=== PATIENT | male | born 1945 | race Caucasian/White ===

== ENCOUNTER 2016-11-27 08:00 | Outpatient (CLI) | payer MEDICARE, OTHER | END 2016-11-27 08:01 | disposition home or self-care (01) | DX: I10 Essential (primary) hypertension (principal); Z12.5 Encounter for screening for malignant neoplasm of prostate; E78.9 Disorder of lipoprotein metabolism, unspecified; I25.10 Atherosclerotic heart disease of native coronary artery without angina pectoris | CPT/HCPCS: 36415; 80053; 80061; 85025; G0103 ==

== ENCOUNTER 2017-01-14 07:58 | Outpatient (CLI) | payer MEDICARE, OTHER | END 2017-01-14 07:59 | DX: I25.2 Old myocardial infarction (principal); I10 Essential (primary) hypertension; Z95.5 Presence of coronary angioplasty implant and graft; E78.5 Hyperlipidemia, unspecified; Z87.891 Personal history of nicotine dependence; E66.01 Morbid (severe) obesity due to excess calories; Z68.35 Body mass index [BMI] 35.0-35.9, adult ==

== ENCOUNTER 2017-02-19 09:00 | Outpatient (CLI) | payer MEDICARE, OTHER ==
[2017-02-19 13:32] LABS: CALCIUM 8.9 mg/dL (8.5-10.3); CREATININE 1.1 mg/dL (0.6-1.2); POTASSIUM 3.5 mmol/L (3.5-5.0)
== END 2017-02-19 09:01 | disposition home or self-care (01) ==
LOC: LAB.WCP 09:00
PROVIDERS: ATTEND Internal Medicine Interventional Cardiology
DX: I25.2 Old myocardial infarction (principal)
CPT/HCPCS: 36415; 80048

== ENCOUNTER 2017-06-23 08:00 | Outpatient (CLI) | payer MEDICARE, OTHER ==
[2017-06-23 19:10] LABS: BASOPHILS # (AUTO) 0.1 10^3/uL (0.0-0.1); EOSINOPHILS # (AUTO) 0.4 10^3/uL (0.0-0.7); EOSINOPHILS % (AUTO) 3.6 %; HCT - HEMATOCRIT 46.6 % (42.0-52.0); HGB - HEMOGLOBIN 15.4 g/dL (14.0-18.0); LYMPHOCYTES # (AUTO) 1.6 10^3/uL (1.5-3.5); LYMPHOCYTES % (AUTO) 15.4 %; MEAN CORPUSCULAR HEMOGLOBIN 30.7 pg (27.0-31.0); MEAN CORPUSCULAR HGB CONC 33.1 g/dL (32.0-36.0); MEAN CORPUSCULAR VOLUME 92.8 fL (80.0-94.0); MEAN PLATELET VOLUME 8.1 fL (7.4-11.4); MONOCYTES # (AUTO) 0.9 10^3/uL (0.0-1.0); MONOCYTES % (AUTO) 8.3 %; NEUTROPHILS # (AUTO) 7.4 10^3/uL (1.5-6.6); NEUTROPHILS % (AUTO) 71.7 %; RED BLOOD COUNT 5.02 10^6/uL (4.70-6.10); RED CELL DISTRIBUTION WIDTH 14.1 % (12.0-15.0); UNCORRECTED WHITE BLOOD COUNT 10.3 x10^3/uL; WHITE BLOOD COUNT 10.3 x10^3/uL (4.8-10.8)
[2017-06-23 19:32] LABS: ALBUMIN/GLOBULIN RATIO 1.4 (1.0-2.2); BILIRUBIN,TOTAL 0.9 mg/dL (0.2-1.0); CALCIUM 8.8 mg/dL (8.5-10.3); CREATININE 1.3 mg/dL (0.6-1.2); POTASSIUM 3.7 mmol/L (3.5-5.0); TOTAL PROTEIN 7.3 g/dL (6.7-8.2)
== END 2017-06-23 08:01 | disposition home or self-care (01) ==
LOC: LAB.WCP 08:00
PROVIDERS: ATTEND Family Medicine
DX: R10.32 Left lower quadrant pain (principal)
CPT/HCPCS: 36415; 80053; 85025

== ENCOUNTER 2017-06-24 14:07 | Outpatient (CLI) | payer MEDICARE, OTHER ==
[2017-06-24] MEDS ORDERED: IOPAMIDOL-300 50 ML VIAL ONE (14:15)
[2017-06-24] MEDS ORDERED: IOPAMIDOL-300 50 ML VIAL PO ONE (14:19)
[2017-06-24] MEDS ORDERED: IOPAMIDOL-300 100 ML VIAL IVP ONE (15:29)
--- NOTE | 2017-06-25 09:12 | CT Report ---
CT ABDOMEN AND PELVIS WITH CONTRAST: 06/24/2017 CLINICAL INDICATION: Pain. TECHNIQUE: Axial CT images of the abdomen and pelvis were obtained with 100 mL Isovue-300 intravenou sly as well as oral contrast. No previous CT is available for comparison. In accordance with CT protocol optimization, one or more of the following dose reduction techniques w ere utilized for this exam: automated exposure control, adjustment of mA and/or KV based on patient size, or use of iterative reconstructive technique. FINDINGS: Limited evaluation of the lung bases is unremarkable. Abdomen: The liver, spleen, pancreas, and adrenal glands are unremarkable. The kidneys demonstrate cortical cysts. Cholelithiasis is present. The gallbladder is not distended. No bowel dilatation, free gas, or free fluid is present. No abdominal adenopathy is present. Pelvis: The appendix is seen in the right lower quadrant, and is normal in caliber. A few sigmoid d iverticula are present, without CT evidence of diverticulitis. No inguinal or femoral hernia is iden tified. No free fluid or pelvic adenopathy is present. Osseous structures demonstrate degenerative changes. IMPRESSION: DIVERTICULOSIS, WITHOUT CT EVIDENCE OF DIVERTICULITIS. NO EVIDENT ETIOLOGY FOR PATIENT' S LEFT LOWER QUADRANT AND LEFT INGUINAL PAIN. JOB #: [id number] EXT JOB #:[id number]
== END 2017-06-24 14:08 | disposition home or self-care (01) ==
LOC: DI 14:07
PROVIDERS: ATTEND Family Medicine
DX: R10.32 Left lower quadrant pain (principal); K57.30 Diverticulosis of large intestine without perforation or abscess without bleeding
CPT/HCPCS: 74177; Q9967

== ENCOUNTER 2018-02-25 14:34 | Outpatient (CLI) | payer MEDICARE, OTHER ==
[2018-02-25 19:00] LABS: ALBUMIN/GLOBULIN RATIO 1.2 (1.0-2.2); BILIRUBIN,TOTAL 1.2 mg/dL (0.2-1.0); CALCIUM 8.8 mg/dL (8.5-10.3); CREATININE 1.3 mg/dL (0.6-1.2); TOTAL PROTEIN 7.4 g/dL (6.7-8.2)
[2018-02-25 19:24] LABS: FOLATE 12.71 ng/mL (5.90 - >24.8)
== END 2018-02-25 14:35 | disposition home or self-care (01) ==
LOC: LAB.WCP 14:34
PROVIDERS: ATTEND Family Medicine
DX: R19.7 Diarrhea, unspecified (principal)
CPT/HCPCS: 36415; 80053; 82607; 82746; 83516

== ENCOUNTER 2018-02-28 08:00 | Outpatient (CLI) | payer MEDICARE, OTHER ==
[2018-02-28 19:54] LABS: H. PYLORIS ANTIGEN STL NEGATIVE (Negative)
== END 2018-02-28 08:01 | disposition home or self-care (01) ==
LOC: LAB.WCP 08:00
PROVIDERS: ATTEND Family Medicine
DX: R19.7 Diarrhea, unspecified (principal)
CPT/HCPCS: 36415; 81599; 83630; 87329; 87338; 87493

== ENCOUNTER 2018-09-29 13:30 | Outpatient (CLI) | payer MEDICARE, OTHER | END 2018-09-29 23:59 | disposition home or self-care (01) | LOC: LAB.WCP 13:30 | PROVIDERS: ATTEND Family Medicine | DX: R19.7 Diarrhea, unspecified (principal) | CPT/HCPCS: 87493 ==

== ENCOUNTER 2019-03-09 07:22 | Outpatient (CLI) | payer MEDICARE, OTHER ==
[2019-03-09 12:37] LABS: BASOPHILS # (AUTO) 0.1 10^3/uL (0.0-0.1); BASOPHILS % (AUTO) 0.8 %; EOSINOPHILS # (AUTO) 0.3 10^3/uL (0.0-0.7); EOSINOPHILS % (AUTO) 3.3 %; HGB - HEMOGLOBIN 15.2 g/dL (14.0-18.0); LYMPHOCYTES # (AUTO) 1.8 10^3/uL (1.5-3.5); LYMPHOCYTES % (AUTO) 18.1 %; MEAN CORPUSCULAR HEMOGLOBIN 30.8 pg (27.0-31.0); MEAN CORPUSCULAR HGB CONC 32.2 g/dL (32.0-36.0); MEAN CORPUSCULAR VOLUME 95.5 fL (80.0-94.0); MEAN PLATELET VOLUME 9.6 fL (7.4-11.4); MONOCYTES # (AUTO) 0.8 10^3/uL (0.0-1.0); MONOCYTES % (AUTO) 8.5 %; NEUTROPHILS # (AUTO) 6.8 10^3/uL (1.5-6.6); NEUTROPHILS % (AUTO) 69.1 %; PLT - PLATELET COUNT 252 10^3/uL (130-450); RED BLOOD COUNT 4.94 10^6/uL (4.70-6.10); RED CELL DISTRIBUTION WIDTH 13.8 % (12.0-15.0); WHITE BLOOD COUNT 9.8 x10^3/uL (4.8-10.8)
[2019-03-09 13:07] LABS: ALBUMIN 4.1 g/dL (3.2-5.5); ALBUMIN/GLOBULIN RATIO 1.3 (1.0-2.2); ALKALINE PHOSPHATASE 75 IU/L (42-121); ALT ALANINE AMINOTRANSFERASE 32 IU/L (10-60); AST ASPARTATE AMINOTRANSFERASE 40 IU/L (10-42); BILIRUBIN,TOTAL 1.2 mg/dL (0.2-1.0); BUN - BLOOD UREA NITROGEN 17 mg/dL (6-20); CARBON DIOXIDE - CO2 23 mmol/L (21-32); CHLORIDE 108 mmol/L (101-111); CHOL/HDL RATIO 3.9 (<5.0); CHOLESTEROL 93 mg/dL; CREATININE 1.3 mg/dL (0.6-1.2); GFR - MDRD 54 (>89); GLUCOSE 99 mg/dL (70-100); HDL CHOLESTEROL 24 mg/dL; LDL CHOLESTEROL,CALCULATED 48 mg/dL; SODIUM 139 mmol/L (135-145); TOTAL PROTEIN 7.2 g/dL (6.7-8.2); VLDL CHOLESTEROL 21 mg/dL
== END 2019-03-09 23:59 | disposition home or self-care (01) ==
LOC: LAB.WCP 07:22
PROVIDERS: ATTEND Family Medicine
DX: A04.72 Enterocolitis due to Clostridium difficile, not specified as recurrent (principal); I25.10 Atherosclerotic heart disease of native coronary artery without angina pectoris; I10 Essential (primary) hypertension; Z12.5 Encounter for screening for malignant neoplasm of prostate
CPT/HCPCS: 36415; 80061; G0103; 80053; 83721; 84153; 84443; 85025

== ENCOUNTER 2019-03-10 07:00 | Outpatient (CLI) | payer MEDICARE, OTHER | END 2019-03-10 07:01 | disposition home or self-care (01) | LOC: LAB.R 07:00 | PROVIDERS: ATTEND Family Medicine | DX: A04.72 Enterocolitis due to Clostridium difficile, not specified as recurrent (principal) | CPT/HCPCS: 87493 ==

== ENCOUNTER 2020-02-19 08:00 | Outpatient (CLI) | payer MEDICARE, OTHER ==
[2020-02-19 12:09] LABS: BASOPHILS # (AUTO) 0.1 10^3/uL (0.0-0.1); BASOPHILS % (AUTO) 1.2 %; EOSINOPHILS # (AUTO) 0.2 10^3/uL (0.0-0.7); EOSINOPHILS % (AUTO) 2.1 %; HGB - HEMOGLOBIN 15.5 g/dL (14.0-18.0); LYMPHOCYTES # (AUTO) 1.7 10^3/uL (1.5-3.5); LYMPHOCYTES % (AUTO) 19.5 %; MEAN CORPUSCULAR HEMOGLOBIN 31.8 pg (27.0-31.0); MEAN CORPUSCULAR HGB CONC 33.3 g/dL (32.0-36.0); MEAN CORPUSCULAR VOLUME 95.7 fL (80.0-94.0); MEAN PLATELET VOLUME 10.1 fL (7.4-11.4); MONOCYTES # (AUTO) 0.8 10^3/uL (0.0-1.0); MONOCYTES % (AUTO) 9.3 %; NEUTROPHILS # (AUTO) 5.8 10^3/uL (1.5-6.6); NEUTROPHILS % (AUTO) 67.6 %; PLT - PLATELET COUNT 200 10^3/uL (130-450); RED BLOOD COUNT 4.87 10^6/uL (4.70-6.10); RED CELL DISTRIBUTION WIDTH 13.4 % (12.0-15.0); WHITE BLOOD COUNT 8.6 x10^3/uL (4.8-10.8)
[2020-02-19 13:03] LABS: ALBUMIN/GLOBULIN RATIO 1.4 (1.0-2.2); ALKALINE PHOSPHATASE 79 IU/L (42-121); ALT ALANINE AMINOTRANSFERASE 40 IU/L (10-60); AST ASPARTATE AMINOTRANSFERASE 24 IU/L (10-42); BILIRUBIN,TOTAL 1.1 mg/dL (0.2-1.0); BUN - BLOOD UREA NITROGEN 18 mg/dL (6-20); CALCIUM 8.8 mg/dL (8.5-10.3); CARBON DIOXIDE - CO2 29 mmol/L (21-32); CHLORIDE 103 mmol/L (101-111); CHOL/HDL RATIO 3.5 (<5.0); CHOLESTEROL 101 mg/dL; CREATININE 1.3 mg/dL (0.6-1.2); GLUCOSE 101 mg/dL (70-100); HDL CHOLESTEROL 29 mg/dL; LDL CHOLESTEROL,CALCULATED 56 mg/dL; LDL/HDL RATIO 1.9 (<3.6); SODIUM 139 mmol/L (135-145); TOTAL PROTEIN 6.9 g/dL (6.7-8.2); VLDL CHOLESTEROL 16 mg/dL
== END 2020-02-19 23:59 | disposition home or self-care (01) ==
LOC: LAB.WCP 08:00
PROVIDERS: ATTEND Family Medicine
DX: I25.10 Atherosclerotic heart disease of native coronary artery without angina pectoris (principal); R19.7 Diarrhea, unspecified; I10 Essential (primary) hypertension; Z12.5 Encounter for screening for malignant neoplasm of prostate; E87.5 Hyperkalemia
CPT/HCPCS: 36415; 80053; 80061; 84443; 85025; G0103; 83721; 84153

== ENCOUNTER 2021-06-27 08:32 | Outpatient (CLI) | payer MEDICARE, OTHER ==
[2021-06-27 12:20] LABS: BASOPHILS # (AUTO) 0.1 10^3/uL (0.0-0.1); BASOPHILS % (AUTO) 0.9 %; EOSINOPHILS # (AUTO) 0.1 10^3/uL (0.0-0.7); EOSINOPHILS % (AUTO) 1.5 %; HCT - HEMATOCRIT 46.6 % (42.0-52.0); HGB - HEMOGLOBIN 15.6 g/dL (14.0-18.0); LYMPHOCYTES # (AUTO) 1.9 10^3/uL (1.5-3.5); LYMPHOCYTES % (AUTO) 21.7 %; MEAN CORPUSCULAR HEMOGLOBIN 32.1 pg (27.0-31.0); MEAN CORPUSCULAR HGB CONC 33.5 g/dL (32.0-36.0); MEAN CORPUSCULAR VOLUME 95.9 fL (80.0-94.0); MONOCYTES # (AUTO) 0.8 10^3/uL (0.0-1.0); NEUTROPHILS # (AUTO) 5.8 10^3/uL (1.5-6.6); NEUTROPHILS % (AUTO) 66.6 %; PLT - PLATELET COUNT 213 10^3/uL (130-450); RED BLOOD COUNT 4.86 10^6/uL (4.70-6.10); RED CELL DISTRIBUTION WIDTH 13.2 % (12.0-15.0); WHITE BLOOD COUNT 8.8 x10^3/uL (4.8-10.8)
[2021-06-27 13:37] LABS: ALBUMIN 4.2 g/dL (3.2-5.5); ALBUMIN/GLOBULIN RATIO 1.5 (1.0-2.2); ALKALINE PHOSPHATASE 74 IU/L (42-121); ALT ALANINE AMINOTRANSFERASE 33 IU/L (10-60); AST ASPARTATE AMINOTRANSFERASE 21 IU/L (10-42); BUN - BLOOD UREA NITROGEN 30 mg/dL (6-20); CALCIUM 9.3 mg/dL (8.5-10.3); CARBON DIOXIDE - CO2 29 mmol/L (21-32); CHLORIDE 103 mmol/L (101-111); CHOLESTEROL 116 mg/dL; CREATININE 1.5 mg/dL (0.6-1.2); GFR - MDRD 46 (>89); GLUCOSE 107 mg/dL (70-100); HDL CHOLESTEROL 29 mg/dL; LDL CHOLESTEROL,CALCULATED 64 mg/dL; LDL/HDL RATIO 2.2 (<3.6); POTASSIUM 3.7 mmol/L (3.5-5.0); SODIUM 144 mmol/L (135-145); TRIGLYCERIDES 113 mg/dL; VLDL CHOLESTEROL 23 mg/dL
== END 2021-06-27 23:59 | disposition home or self-care (01) ==
LOC: LAB.WCP 08:32
PROVIDERS: ATTEND Internal Medicine
DX: I10 Essential (primary) hypertension (principal); E78.5 Hyperlipidemia, unspecified; Z12.5 Encounter for screening for malignant neoplasm of prostate
CPT/HCPCS: 36415; 80053; 80061; 85025; G0103; 83721; 84153

== ENCOUNTER 2021-06-30 11:11 | Outpatient (CLI) | payer MEDICARE, OTHER ==
[2021-06-30 18:39] LABS: CREATININE 1.3 mg/dL (0.6-1.2); POTASSIUM 3.7 mmol/L (3.5-5.0); URIC ACID 11.4 mg/dL (2.6-7.2)
== END 2021-06-30 23:59 | disposition home or self-care (01) ==
LOC: LAB.WCP 11:11
PROVIDERS: ATTEND Internal Medicine
DX: M10.272 Drug-induced gout, left ankle and foot (principal)
CPT/HCPCS: 36415; 80048; 84550

== ENCOUNTER 2021-09-18 07:00 | Outpatient (CLI) | payer MEDICARE, OTHER ==
[2021-09-18 12:22] LABS: CALCIUM 8.8 mg/dL (8.5-10.3); CREATININE 1.4 mg/dL (0.6-1.2); POTASSIUM 3.6 mmol/L (3.5-5.0)
== END 2021-09-18 23:59 | disposition home or self-care (01) ==
LOC: LAB.WCP 07:00
PROVIDERS: ATTEND Internal Medicine
DX: M10.272 Drug-induced gout, left ankle and foot (principal)
CPT/HCPCS: 36415; 80048; 84550

== ENCOUNTER 2021-09-24 07:39 | Outpatient (CLI) | payer MEDICARE, OTHER ==
--- NOTE | 2021-09-24 08:48 | Ultrasound Report ---
PROCEDURE: Aorta Screening INDICATIONS: HX OF SMOKING TECHNIQUE: Real time scanning was performed of the aorta and iliac arteries, with image documentatio n. COMPARISON: Reference is made to the CT abdomen dated June 24, 2017. FINDINGS: Aorta: Proximal aortic diameter measures 2.9 x 2.8 cm. Mid-aorta measures 2.4 x 2.3 cm. Distal aor tic diameter is 2.4 x 2.8 cm. Calcified atheromatous change of the aorta. Iliac arteries: Right common iliac artery measures 1.1 x 1 cm. Left common iliac artery measures 1 x 0.8 cm. IMPRESSION: 1. No sonographic evidence of abdominal aortic aneurysm. Reviewed by: Manan Rivera MD on 09/24/2021 8:47 AM PST Approved by: Manan Rivera MD on 09/24/2021 8:47 AM PST Station ID: [id number]
== END 2021-09-24 07:40 | disposition home or self-care (01) ==
LOC: DI 07:39
PROVIDERS: ATTEND Internal Medicine
DX: Z13.6 Encounter for screening for cardiovascular disorders (principal); Z87.891 Personal history of nicotine dependence

== ENCOUNTER 2022-09-30 09:10 | Outpatient (CLI) | payer MEDICARE, OTHER ==
[2022-09-30 13:00] LABS: ALBUMIN 3.8 g/dL (3.2-5.5); ALBUMIN/GLOBULIN RATIO 1.1 (1.0-2.2); ALKALINE PHOSPHATASE 77 IU/L (42-121); ALT ALANINE AMINOTRANSFERASE 27 IU/L (10-60); AST ASPARTATE AMINOTRANSFERASE 18 IU/L (10-42); BILIRUBIN,TOTAL 1.2 mg/dL (0.2-1.0); BUN - BLOOD UREA NITROGEN 24 mg/dL (6-20); CALCIUM 9.1 mg/dL (8.5-10.3); CARBON DIOXIDE - CO2 29 mmol/L (21-32); CHLORIDE 104 mmol/L (101-111); CHOL/HDL RATIO 3.5 (<5.0); CHOLESTEROL 105 mg/dL; CREATININE 1.5 mg/dL (0.6-1.2); GFR - MDRD 46 (>89); GLUCOSE 100 mg/dL (70-100); HDL CHOLESTEROL 30 mg/dL; LDL CHOLESTEROL,CALCULATED 55 mg/dL; LDL/HDL RATIO 1.8 (<3.6); POTASSIUM 3.9 mmol/L (3.5-5.0); SODIUM 141 mmol/L (135-145); TOTAL PROTEIN 7.2 g/dL (6.7-8.2); TRIGLYCERIDES 102 mg/dL; URIC ACID 8.7 mg/dL (2.6-7.2); VLDL CHOLESTEROL 20 mg/dL
[2022-09-30 13:12] LABS: THYROID STIMULATING HORMONE 1.62 uIU/mL (0.34-5.60)
[2022-09-30 13:14] LABS: BASOPHILS # (AUTO) 0.1 10^3/uL (0.0-0.1); BASOPHILS % (AUTO) 0.8 %; EOSINOPHILS # (AUTO) 0.2 10^3/uL (0.0-0.7); EOSINOPHILS % (AUTO) 1.6 %; HCT - HEMATOCRIT 45.5 % (42.0-52.0); HGB - HEMOGLOBIN 14.6 g/dL (14.0-18.0); LYMPHOCYTES # (AUTO) 1.7 10^3/uL (1.5-3.5); MEAN CORPUSCULAR HEMOGLOBIN 30.4 pg (27.0-31.0); MEAN CORPUSCULAR HGB CONC 32.1 g/dL (32.0-36.0); MEAN CORPUSCULAR VOLUME 94.8 fL (80.0-94.0); MEAN PLATELET VOLUME 10.1 fL (7.4-11.4); MONOCYTES % (AUTO) 9.2 %; NEUTROPHILS # (AUTO) 7.6 10^3/uL (1.5-6.6); NEUTROPHILS % (AUTO) 72.1 %; PLT - PLATELET COUNT 212 10^3/uL (130-450); RED CELL DISTRIBUTION WIDTH 13.7 % (12.0-15.0); WHITE BLOOD COUNT 10.6 x10^3/uL (4.8-10.8)
== END 2022-09-30 09:11 | disposition home or self-care (01) ==
LOC: LAB.N 09:10
PROVIDERS: ATTEND Internal Medicine
DX: E78.5 Hyperlipidemia, unspecified (principal); M10.272 Drug-induced gout, left ankle and foot; I10 Essential (primary) hypertension
CPT/HCPCS: 36415; 80053; 80061; 83721; 84443; 84550; 85025

== ENCOUNTER 2022-12-23 08:53 | Outpatient (CLI) | payer MEDICARE, OTHER ==
[2022-12-23 12:00] LABS: CALCIUM 8.6 mg/dL (8.5-10.3); CREATININE 1.3 mg/dL (0.6-1.2); POTASSIUM 3.8 mmol/L (3.5-5.0); URIC ACID 5.5 mg/dL (2.6-7.2)
== END 2022-12-23 08:54 | disposition home or self-care (01) ==
LOC: LAB.N 08:53
PROVIDERS: ATTEND Internal Medicine
DX: I10 Essential (primary) hypertension (principal); M10.272 Drug-induced gout, left ankle and foot
CPT/HCPCS: 36415; 80048; 84550

== ENCOUNTER 2023-03-12 13:51 | Outpatient (CLI) | payer MEDICARE, OTHER ==
--- NOTE | 2023-03-12 14:46 | Sleep Patient Instructions ---
Sleep Center Visit Summary - Patient Visit Information Reason for Visit: Initial consult for evaluation of sleep disordered breathing and other sleep issues. - Patient Instructions Instructions Attached: Sleep Study, Sleep Clinic Visit Additional Instructions: You will be completing a sleep study, either an in-lab polysomnography (PSG) or home sleep study (HST). You will follow-up in the sleep care office after the sleep study is completed to hear the results and talk about therapy, if needed. You will be called by our office staff to schedule this appointment, but you may contact us with any questions. - Clinic Information Contact: [facility] [address] [place] [address] [email or web address] T: [phone]
--- NOTE | 2023-03-12 14:50 | SLEEP CARE CONSULTATION ---
Information from patient questionnaire entered by Ton Young. I have reviewed and concur with the information entered by Ton Young. This document represents the service I personally performed and the decisions made by me, Marni Stephen ARNP. History of Present Illness Service Date and Time: 03/12/2023 1351 Reason for Visit: New patient Chief Complaint: reports: Snoring, Observed pauses in breathing, Other (Doctor sent him here) Date of Onset: UNKNOWN Usual bedtime: 9PM Time it takes to fall asleep: 30MIN Snores at night: Yes Observed to quit breathing while asleep: Yes Sleeps alone due to snoring: No Number of times waking at night: 3-4 Reasons for waking at night: reports: Bathroom. denies: Choking, Snoring, Gasping for air Toss, Turn, or Twitch while sleeping: Yes Recalls having dreams: Yes Usually gets out of bed at: 630AM Feels refreshed in the morning: Yes Morning headache: No Sleepy or fatigued during the day: Yes Ever fallen asleep while driving: No Takes day naps: Yes (2-3 times a week; 15-30 mins) Dreams during day naps: No Prior sleep studies: No Additional HPI information: I had the pleasure of seeing MILANA GÓMEZ today regarding the possibility of him having a sleep disorder. His current complaints are snoring and observed pauses in breathing. He is here because his doctor recommended it. He states he is not really got any complaints but his has told him he snores loudly and has noted when he stops breathing when sleeping. He states he wakes up feeling refreshed and will take 2 or 3 naps a week for 15 to 30 minutes. He does not feel excessively sleepy. He denies waking up feeling like he is choking or gasping for air. He does have a history of high blood pressure that he feels is well controlled. - Parasomnia Symptoms Ever been unable to move upon waking from sleep: No Walks in sleep: No Talks in sleep: No Ever acted out dreams in sleep: No Ever felt weak in the knees when startled or emotional: No Bothered by creepy, crawly, restless sensations in legs: No Problems with memory or concentration: No Subjective Initial [place] Sleepiness Scale score: 10 (03/12/23) Past Medical History Past Medical History: reports: Hypertension, Gout (once), Other (high cholesterol) Social History The patient's occupation is a RE. Patient is and lives in [place]. Have you smoked in the past 12 months: No Cigarettes per day (20/pack): 20 Years of smokin Smoking Pack Years: 40.0 Alcohol use: Yes Alcohol amount and frequency: GLASS WINE 1-2 X WEEK Caffeine use: Yes Caffeine amount and frequency: 1 A DAY DAILY Family History Family history of sleep disordered breathing: Yes Family Hx Sleep Apnea: Mother: Snoring, Father: Snoring Allergies and Home Medications Known drug allergies: No Drug allergies reviewed: Yes Home medication list reviewed: Yes Allergy and home medication list: Medications: Aspirin 81 mg daily Metoprolol ER 200 mg daily Telmasartin 100 mg daily Allopurinol 300 mg daily Atorvastatin 80 mg Amlodipine 5 mg in AM Review of Systems Weight gain over past 5 years: 60 Cardiovascular: reports: high blood pressure Respiratory: denies: shortness of breath Gastrointestinal: denies: heartburn Urinary: reports: frequency Neurological: denies: headaches Psychiatric: denies: anxiety, depression Ear/Nose/Throat: denies: tonsillectomy Immunologic: denies: allergies to food or environment Physical Exam Vital signs obtained and entered by: TON Tesfaye MA Blood Pressure: 132/76 (LEFT ARM) Cuff size: long Heart Rate: 78 O2 Saturation: 98 Height: 5 ft 10 in Weight: 302 lb Body Mass Index: 43.3 BMI Classification: Morbidly Obese Neck circumference: 19.5 Mouth and throat: narrow oropharynx Soft palate: long Hard palate: normal Uvula: normal Uvula visualization: 25% Mallampati Class III Tongue: enlarged in size with teeth castillo on lateral edges Tonsils: small Neck: normal w/o lymphadenopathy or thyromegaly Heart: regular rate and rhythm Lungs: clear bilaterally Impression and Plan 1. Suspected Obstructive Sleep Apnea-Hypopnea Syndrome, as suggested by a history of loud and irregular snoring, observed cessation of breath while asleep and frequent awakening during the night. Narrow oropharynx and obesity are common predisposing factors for obstructive sleep apnea-hypopnea syndrome. I recommend proceeding to polysomnography to confirm the diagnosis and to assess severity. If the patient has significant sleep disordered breathing, a manual CPAP titration study will also be performed to find the optimal treatment pressure. I informed the patient of what the sleep studies involve and after some discussion, obtained agreement to proceed. The pathophysiology of obstructive sleep apnea-hypopnea syndrome was discussed with the patient and health risks of cardiovascular and cerebrovascular disease if not treated. Risks of drowsy driving discussed in detail and patient advised to avoid long distance driving and to hide puller at the first sign of drowsiness. Patient agreed to plan. * Schedule polysomnography +- manual CPAP titration study and return in 1-2 weeks after the study to discuss result and initiate therapy. * Avoid long distance driving or driving when feeling sleepy. * Avoid alcohol, sedative and muscle relaxant around bedtime. * Attempt to lose weight. * Review instructions provided by trained office staff on how to prepare for the sleep study. * Return for follow-up after sleep study completed. Counseling Topics: Weight loss health impact Visit Type: In Office Time Spent with Patient (minutes): 30 Provider Statement: I spent 100% of the Face to Face Visit with the patient with greater than 50% spent counseling the patient and coordination of care.
[2023-03-12 14:51] VITALS: BP 132/76
== END 2023-03-12 13:52 | disposition home or self-care (01) ==
LOC: SC 13:51
PROVIDERS: ATTEND Nurse Practitioner Family
DX: R53.83 Other fatigue (principal); G47.8 Other sleep disorders; R06.83 Snoring; R06.81 Apnea, not elsewhere classified; I10 Essential (primary) hypertension; E66.01 Morbid (severe) obesity due to excess calories; Z68.41 Body mass index [BMI] 40.0-44.9, adult; Z87.891 Personal history of nicotine dependence
CPT/HCPCS: 99203; G0463; 99212

== ENCOUNTER 2023-04-07 19:22 | Outpatient (CLI) | payer MEDICARE, OTHER | END 2023-04-07 19:23 | disposition home or self-care (01) | LOC: SC 19:22 | PROVIDERS: ATTEND Nurse Practitioner Family | DX: G47.33 Obstructive sleep apnea (adult) (pediatric) (principal) | CPT/HCPCS: 95810 ==

== ENCOUNTER 2023-04-21 12:06 | Outpatient (CLI) | payer MEDICARE, OTHER ==
--- NOTE | 2023-04-21 12:18 | SLEEP CARE CONSULTATION ---
Information from patient questionnaire entered by Joanie Young. I have reviewed and concur with the information entered by Joanie Young. This document represents the service I personally performed and the decisions made by , Marni Stephen ARNP. History of Present Illness Service Date and Time: 04/21/2023 1140 Initial [place] Sleepiness Scale score: 10 (03/12/23) Current [place] Sleepiness Scale score: 6 (04/21/23) Additional HPI information: MILANA GÓMEZ returns via telehealth visit for follow up of the sleep study performed on 04/07/2023. The patient was informed of the following polysomnography findings: Because there was very limited sleep the PSG was non-diagnostic. However, there is evidence that he may have severe obstructive sleep apnea and should repeat sleep study, either an HST or PSG. Sleep Study - Results Type of Sleep Study: Polysomnography (COMPLETED 04/07/23) Prior sleep studies: No Polysomnography/Home Sleep Study results: IMPRESSION: This is an incomplete in-laboratory polysomnography due to premature termination by the patient. The quality of the study is good. The patient had very poor sleep efficiency. The sleep architecture was abnormal for sleep fragmentation and lack of REM and slow wave sleep (N3). Respiratory monitoring showed evidence of obstructive sleep apnea-hypopnea (AHI = 68.2) but no hypoxia (loc oxygen saturation of 90%). The respiratory events appeared to occur independently of sleep stage and body p osition (supine AHI = 75.0; non-supine = 0.00). Snore was rare. There was no significant periodic leg movement of sleep. Cardiac rhythm was normal sinus rhythm with frequent premature atrial contractions. No abnormal behavior (parasomnia) observed during the night. Allergies and Home Medications Known drug allergies: No Drug allergies reviewed: Yes Home medication list reviewed: Yes (no changes) Allergy and home medication list: Allergies No Known Drug Allergies Allergy (Verified 04/20/23 09:20) Review of Systems Review of systems same as previous: Yes (no changes) Physical Exam Vital signs obtained and entered by: JOANIE Tesfaye MA Height: 5 ft 10 in (PER PT) Weight: 225 lb (PER PT) Body Mass Index: 32.3 BMI Classification: Obese Impression and Plan 1. Suspected Obstructive Sleep Apnea-Hypopnea Syndrome, as suggested by a history of loud and irregular snoring, observed cessation of breath while asleep and frequent awakening during the night. His PSG was non-diagnostic due to limited amount of sleep. There was evidence that he could have severe sleep apnea and I recommend repeating polysomnography/HST to confirm the diagnosis and to assess severity. I obtained agreement to proceed. The pathophysiology of obstructive sleep apnea-hypopnea syndrome was discussed with the patient and health risks of cardiovascular and cerebrovascular disease if not treated. Risks of drowsy driving discussed in detail and patient advised to avoid long distance driving and to pulley maintainer at the first sign of drowsiness. Patient agreed to plan. * Schedule polysomnography/HST. * Avoid long distance driving or driving when feeling sleepy. * Avoid alcohol, sedative and muscle relaxant around bedtime. * Attempt to lose weight. * Review instructions provided by trained office staff on how to prepare for the sleep study. * Return for follow-up after sleep study completed. Counseling Topics: Weight loss health impact Visit Type: Telehealth Phone Video Type: [employer] Patient Location: Home Location of Provider: Office Patient agrees and consents to this telehealth visit type: Yes Patient agrees to have their insurance billed: Yes Time Spent with Patient (minutes): 10 Provider Statement: I spent 100% of the Telehealth Phone Call with the patient with greater than 50% spent counseling the patient and coordination of care.
== END 2023-04-21 12:07 | disposition home or self-care (01) ==
LOC: SC 12:06
PROVIDERS: ATTEND Nurse Practitioner Family
DX: G47.8 Other sleep disorders (principal); R06.83 Snoring; R06.81 Apnea, not elsewhere classified; E66.9 Obesity, unspecified; Z68.32 Body mass index [BMI] 32.0-32.9, adult

== ENCOUNTER 2023-05-14 10:58 | Outpatient (CLI) | payer MEDICARE, OTHER ==
[2023-05-14 18:22] LABS: CREATININE 1.2 mg/dL (0.6-1.3); POTASSIUM 3.9 mmol/L (3.5-4.5); URIC ACID 4.6 mg/dL (4.4-7.6)
== END 2023-05-14 10:59 | disposition home or self-care (01) ==
LOC: LAB.N 10:58
PROVIDERS: ATTEND Internal Medicine
DX: I10 Essential (primary) hypertension (principal); M10.272 Drug-induced gout, left ankle and foot
CPT/HCPCS: 36415; 80048; 82088; 84244; 84550

== ENCOUNTER 2023-08-02 14:25 | Outpatient (CLI) | payer MEDICARE, OTHER | END 2023-08-02 23:59 | disposition critical access hospital (66) | LOC: EMS 14:25 | DX: R41.0 Disorientation, unspecified (principal); R46.4 Slowness and poor responsiveness; R06.2 Wheezing | CPT/HCPCS: A0425; A0429 ==

== ENCOUNTER 2023-08-02 14:46 | Emergency (ER) | payer MEDICARE, OTHER ==
--- NOTE | 2023-08-02 15:36 | ED Physician Documentation ---
PD HPI ALTERED MENTAL STATUS - Stated complaint Stated Complaint: AMS - Chief complaint Chief Complaint: Neuro - History obtained from History obtained from: Patient, Family - History of Present Illness Timing - onset: Last night Timing - duration: Hours Timing - details: Gradual onset, Still present Quality / character: Confused Associated symptoms: Urinary sx. No: Fever, Headache, Stiff neck, Dyspnea, Cough, NVD, General weakness, Focal weakness, Seizure activity, Syncope Contributing factors: No: Anticoagulated, Diabetic Basline status: Alert and oriented X 3, Ambulatory, Independent Similar symptoms before: Has not had sx before Recently seen: Not recently seen - Additional information Additional information: Christian Mccormick is a 77-year-old male with a history of hypertension, gout and morbid obesity who indicates that last night while he was in bed getting ready to go to bed he realized that he was a bit confused when he tried to adjust the bed using the remote for the television set. He felt that he was even having a hard time using the remote to control the television. He is brought to the hospital here by his son today who feels that he is a bit withdrawn and is concerned about the incident last night. The patient indicates that he had to get up to go to the bathroom about 5 times last night and that the symptoms that he mainly has now is urinary urgency and frequency. He indicates he got up 5 times to go to the bathroom last night Review of Systems Constitutional: denies: Fever, Chills Eyes: denies: Decreased vision Ears: denies: Ear pain Nose: denies: Rhinorrhea / runny nose, Congestion Throat: denies: Sore throat Cardiac: denies: Chest pain / pressure, Palpitations Respiratory: denies: Dyspnea, Cough GI: denies: Abdominal Pain, Nausea, Vomiting, Constipation, Diarrhea : reports: Frequency. denies: Dysuria Skin: denies: Rash Musculoskeletal: denies: Neck pain, Back pain, Extremity pain Neurologic: reports: Confused, Altered mental status. denies: Generalized weakness, Focal weakness, Numbness, Syncope, Seizure, Headache, Head injury, LOC PD PAST MEDICAL HISTORY - Past Medical History Past Medical History: Yes Cardiovascular: GA - Past Surgical History Cardiovascular: Coronary stent - Present Medications Home Medications: Ambulatory Orders Medication Instructions Recorded Confirmed Aspirin [[place]] See Rx Instructions .ROUTE .COMPLEX 03/12/23 08/02/23 Atorvastatin Calcium [Lipitor] See Rx Instructions .ROUTE .COMPLEX 03/12/23 08/02/23 Metoprolol Succinate [Toprol Xl] See Rx Instructions .ROUTE .COMPLEX 03/12/23 08/02/23 Telmisartan See Rx Instructions .ROUTE .COMPLEX 03/12/23 08/02/23 allopurinoL [Allopurinol] See Rx Instructions .ROUTE .COMPLEX 03/12/23 08/02/23 amLODIPine [Norvasc] See Rx Instructions .ROUTE .COMPLEX 03/12/23 08/02/23 - Allergies Allergies/Adverse Reactions: Allergies Allergy/AdvReac Type Severity Reaction Status Date / Time No Known Drug Allergies Allergy Verified 08/02/23 15:08 - Social History Does the pt smoke?: No Smoking Status: Never smoker Does the pt drink ETOH?: No Does the pt have substance abuse?: No - Immunizations Immunizations are current?: Yes - POLST Patient has POLST: No PD ED PE NORMAL - Vitals Vital signs reviewed: Yes (hypertensive ) - General General: Alert and oriented X 3, No acute distress, Well developed/nourished - HEENT HEENT: Atraumatic, PERRL, EOMI - Neck Neck: Supple, no meningeal sign, No bony TTP - Cardiac Cardiac: RRR, No murmur - Respiratory Respiratory: No respiratory distress, Clear bilaterally - Abdomen Abdomen: Normal bowel sounds, Soft, Non tender, No organomegaly - Back Back: No CVA TTP, No spinal TTP - Derm Derm: Normal color, Warm and dry, No rash - Extremities Extremities: No deformity, Other (trace edema bilaterally ) - Neuro Neuro: Alert and oriented X 3, sawmilling operator 2-12 intact, No motor deficit, No sensory deficit, Normal speech Eye Opening: Spontaneous Motor: Obeys Commands Verbal: Oriented GCS Score: 15 - Psych Psych: Normal mood, Normal affect Results - Vitals Vitals: Vital Signs - 24 hr 08/02/23 08/02/23 08/02/23 14:54 15:28 17:07 Temperature 36.7 C Heart Rate 69 66 59 L Respiratory 22 14 26 H Rate Blood Pressure 183/101 H 156/76 H O2 Saturation 98 96 99 Oxygen O2 Source Room air - EKG (time done) 1520 EKG releavant findings:: EKG personally interpreted by author of this note. Relevant findings are: Rate: Rate (enter#) (67) Rhythm: NSR, LAE Intervals: Prolonged NH Ischemia: Q waves Compare to prior EKG: Old EKG unavailable Computer interpretation: Agree with computer - Labs Labs: Laboratory Tests 08/02/23 08/02/23 08/02/23 15:34 15:34 17:40 WBC 12.0 H RBC 4.69 L Hgb 14.9 Hct 46.3 MCV 98.7 H MCH 31.8 H MCHC 32.2 RDW 14.3 Plt Count 203 MPV 9.5 Neut # (Auto) 9.5 H Lymph # (Auto) 1.3 L [place] # (Auto) 1.0 Eos # (Auto) 0.2 Baso # (Auto) 0.1 Absolute Nucleated RBC 0.00 Nucleated RBC % 0.0 Sodium 140 Potassium 3.9 Chloride 106 Carbon Dioxide 29 Anion Gap 5.0 L BUN 16 Creatinine 1.4 H Estimated GFR (MDRD) 49 L Glucose 99 Calcium 9.2 Total Bilirubin 0.7 AST 20 ALT 30 Alkaline Phosphatase 88 Troponin I High Sens 9.8 Total Protein 6.6 Albumin 4.3 Globulin 2.3 Albumin/Globulin Ratio 1.9 Lipase 34 Urine Color YELLOW Urine Clarity HAZY Urine pH 6.0 Ur Specific [place] 1.025 Urine Protein 30 H Urine Glucose (UA) NEGATIVE Urine Ketones NEGATIVE Urine Occult Blood NEGATIVE Urine Nitrite NEGATIVE Urine Bilirubin NEGATIVE Urine Urobilinogen 0.2 (NORMAL) Ur Leukocyte Esterase NEGATIVE Urine RBC 0-5 Urine WBC 0-3 Ur Squamous Epith Cells FEW Squamous Amorphous Sediment Few Urine Bacteria Rare Urine Casts 0-2 Fine Granular Ur Microscopic Review INDICATED Urine Culture Comments NOT INDICATED - Rads (name of study) CT head without Relevant Findings:: Prelim report reviewed (Impression: No acute intracranial abnormality. If there is high concern for parenchymal pathology, consider further evaluation with MRI. Possible mass in the right parotid gland measuring 1.4 cm. Consider sonographic correlation for initial work-up of visualization.), EMP independent interpretation of test Procedures - IVC sono (time) 1530 Bedside IVC sono: IVC measures (cm) (1.61), IVC collapsed c insp (cm) (complete), Dehydration (mild) PD Medical Decision Making - ED course Complexity details: reviewed old records, reviewed results, re-evaluated patient, considered differential, d/w patient, d/w family ED course: 77-year-old male with acute confusion beginning last night has a history consistent with the possibility of urinary tract infection with multiple times up to the bathroom last night. We did perform POCUS on the IVC and found him to have a normal size vessel with complete collapse consistent with mild dehydration. Blood work is obtained and a urinalysis is requested. There are no abnormalities to the urinalysis or the blood work and the patient has CT scanning of the head with an incidental finding of a parotid mass. The patient is ready to go home he has no confusion and he has resolved his speech latency. He received one liter of saline during his stay here. His son is at the bedside with him and would like to take him home. The patient has a prior history of sleep apnea and has refused his sleep study. I discussed this with the patient and recommended that he attempt to do this again as it is a 1 night study for something that may affect him for the rest of his life. I have indicated the patient that repeated episodes of apnea through the night can affect cognitive ability and cognitive decline can start with episodic confusion.The patient will fill up follow-up with Dr. Figueroa and have his parotid ultrasound done as well as any further work-up required and he is encouraged to follow-up with his sleep study. Departure - Departure Disposition: 01 Home, Self Care Clinical Impression: Confusion, Dehydration Condition: Stable Instructions: ED Dehydration, ED Confusion Follow-Up: Pj Figueroa MD [Provider Admit Priv/Credential] - Comments: Christian, today it looks like your confusion has resolved and we found you were minimally dehydrated and provided some fluid. On our work-up today we did find that there is a mass in the parotid gland on the right side. This will need follow-up with Dr. Figueroa for an ultrasound for further evaluation. Reading through your history I have found that a sleep study has been requested and this has not been completed. Repeated bouts of apnea or not breathing at night can eventually affect your cognitive ability or your ability to think and remember. This can eventually lead to dementia. A follow-up to get your sleep study done is indicated and I encourage you to do this.
[2023-08-02 15:40] LABS: BASOPHILS # (AUTO) 0.1 10^3/uL (0.0-0.1); BASOPHILS % (AUTO) 0.8 %; EOSINOPHILS # (AUTO) 0.2 10^3/uL (0.0-0.7); EOSINOPHILS % (AUTO) 1.3 %; HCT - HEMATOCRIT 46.3 % (42.0-52.0); HGB - HEMOGLOBIN 14.9 g/dL (14.0-18.0); LYMPHOCYTES # (AUTO) 1.3 10^3/uL (1.5-3.5); LYMPHOCYTES % (AUTO) 10.7 %; MEAN CORPUSCULAR HEMOGLOBIN 31.8 pg (27.0-31.0); MEAN CORPUSCULAR HGB CONC 32.2 g/dL (32.0-36.0); MEAN CORPUSCULAR VOLUME 98.7 fL (80.0-94.0); MEAN PLATELET VOLUME 9.5 fL (7.4-11.4); MONOCYTES % (AUTO) 8.1 %; NEUTROPHILS # (AUTO) 9.5 10^3/uL (1.5-6.6); NEUTROPHILS % (AUTO) 78.8 %; PLT - PLATELET COUNT 203 10^3/uL (130-450); RED BLOOD COUNT 4.69 10^6/uL (4.70-6.10); RED CELL DISTRIBUTION WIDTH 14.3 % (12.0-15.0)
[2023-08-02 15:55] LABS: ALBUMIN 4.3 g/dL (3.2-5.5); ALBUMIN/GLOBULIN RATIO 1.9 (1.0-2.2); BILIRUBIN,TOTAL 0.7 mg/dL (0.2-1.0); CALCIUM 9.2 mg/dL (8.5-10.3); CREATININE 1.4 mg/dL (0.6-1.3); POTASSIUM 3.9 mmol/L (3.5-4.5); TOTAL PROTEIN 6.6 g/dL (6.4-8.9)
[2023-08-02 16:02] LABS: TROPONIN I HIGH SENSITIVITY 9.8 ng/L (2.3-19.7)
[2023-08-02] MEDS ORDERED: SODIUM CHLORIDE 0.9% 500 ML IV STA (16:56)
--- NOTE | 2023-08-02 17:45 | CT Report ---
PROCEDURE: HEAD WO INDICATIONS: confusion TECHNIQUE: Noncontrast 4.5 mm thick angled axial sections acquired from the foramen magnum to the vertex. For r adiation dose reduction, the following was used: automated exposure control, adjustment of mA and/or kV according to patient size. COMPARISON: None. FINDINGS: Image quality: Excellent CSF spaces: Basal cisterns are patent. Lateral ventricles are symmetric. Volume: Vascular calcifications. Periventricular white matter disease is commonly seen with chronic m icroangiopathy. Volume loss is present. These findings are mild to moderate. Brain: No intracranial hemorrhage. Couch-white differentiation is grossly maintained. Craniofacial structures: No displaced fracture. Sinuses are clear. Orbits are intact. Partially empt y sella. Incidentally noted possible mass in the right parotid gland measuring 1.4 cm. IMPRESSION: No acute intracranial abnormality. If there is high concern for parenchymal pathology, consider furth er evaluation with MRI. Possible mass in the right parotid gland measuring 1.4 cm. Consider sonographic correlation for initi al workup of visualization. Reviewed by: Alexander Plunkett MD on 08/02/2023 5:43 PM PST Approved by: Alexander Plunkett MD on 08/02/2023 5:43 PM PST Station ID: [id number]
[2023-08-02 17:48] LABS: BILIRUBIN,URINE NEGATIVE (NEGATIVE); GLUCOSE, URINE (UA) NEGATIVE (NEGATIVE); KETONES,URINE (UA) NEGATIVE (NEGATIVE); LEUKOCYTE ESTERASE, URINE NEGATIVE (NEGATIVE); NITRITE,URINE NEGATIVE (NEGATIVE); OCCULT BLOOD,URINE NEGATIVE (NEGATIVE); PROTEIN,URINE 30 mg/dL (NEGATIVE); UROBILINOGEN,URINE 0.2 (NORMAL) E.U./dL (NORMAL)
[2023-08-02 17:51] LABS: CLARITY,URINE HAZY (CLEAR)
[2023-08-02 18:09] LABS: AMORPHOUS SEDIMENT,UR Few /LPF; BACTERIA,URINE Rare /HPF (None Seen); CASTS, URINE 0-2 Fine Granular /LPF; RBC,URINE 0-5 /HPF (0-5); SQUAMOUS EPITHELIAL CELL,UR FEW Squamous (<= Few); WBC,URINE 0-3 /HPF (0-3)
[2023-08-02 19:11] VITALS: BP 194/106; O2SAT 98
== END 2023-08-02 19:14 | disposition home or self-care (01) ==
LOC: EDUNIT# → ED 14:46
DX: R41.0 Disorientation, unspecified (principal); E86.0 Dehydration; I10 Essential (primary) hypertension; E66.01 Morbid (severe) obesity due to excess calories; Z79.899 Other long term (current) drug therapy
CPT/HCPCS: 36415; 80053; 81001; 81003; 83690; 84484; 85025; 87086; 93005; 96360; 99284

== ENCOUNTER 2023-08-18 18:52 | Outpatient (CLI) | payer MEDICARE, OTHER ==
--- NOTE | 2023-08-19 13:25 | Ultrasound Report ---
PROCEDURE: Head or Neck Soft Tissue INDICATIONS: PAROTID MASS TECHNIQUE: Real-time scanning was performed of the thyroid gland, with image documentation. COMPARISON: CT of the head dated 08/02/2023 FINDINGS: The right parotid gland demonstrates an enlarged lymph node measuring 1.6 x 1.2 x 1.4 cm with cortica l thickening at the area of concern seen on prior CT. IMPRESSION: 1.6 x 1.2 x 1.4 cm enlarged parotid lymph node with cortical thickening in the area of concern as seen on prior CT. Reviewed by: Miguel Angel Christine on 08/19/2023 1:24 PM PST Approved by: Miguel Angel Christine on 08/19/2023 1:24 PM [facility] Station ID: [id number]
== END 2023-08-18 18:53 | disposition home or self-care (01) ==
LOC: DI 18:52
PROVIDERS: ATTEND Physician Assistant
DX: R59.0 Localized enlarged lymph nodes (principal)

== ENCOUNTER 2023-08-23 09:26 | Outpatient (CLI) | payer MEDICARE, OTHER ==
[2023-08-23 12:45] LABS: BASOPHILS # (AUTO) 0.1 10^3/uL (0.0-0.1); EOSINOPHILS # (AUTO) 0.2 10^3/uL (0.0-0.7); EOSINOPHILS % (AUTO) 1.7 %; HCT - HEMATOCRIT 46.5 % (42.0-52.0); LYMPHOCYTES # (AUTO) 1.4 10^3/uL (1.5-3.5); LYMPHOCYTES % (AUTO) 13.7 %; MEAN CORPUSCULAR HEMOGLOBIN 31.6 pg (27.0-31.0); MEAN CORPUSCULAR HGB CONC 32.3 g/dL (32.0-36.0); MEAN CORPUSCULAR VOLUME 97.9 fL (80.0-94.0); MONOCYTES # (AUTO) 0.9 10^3/uL (0.0-1.0); MONOCYTES % (AUTO) 9.2 %; NEUTROPHILS # (AUTO) 7.4 10^3/uL (1.5-6.6); NEUTROPHILS % (AUTO) 74.1 %; PLT - PLATELET COUNT 238 10^3/uL (130-450); RED BLOOD COUNT 4.75 10^6/uL (4.70-6.10)
[2023-08-23 13:02] LABS: ALBUMIN 4.1 g/dL (3.2-5.5); ALBUMIN/GLOBULIN RATIO 1.4 (1.0-2.2); ALKALINE PHOSPHATASE 84 IU/L (42-121); ALT ALANINE AMINOTRANSFERASE 27 IU/L (10-60); AST ASPARTATE AMINOTRANSFERASE 17 IU/L (10-42); BILIRUBIN,TOTAL 0.9 mg/dL (0.2-1.0); BUN - BLOOD UREA NITROGEN 24 mg/dL (6-20); CALCIUM 9.5 mg/dL (8.5-10.3); CARBON DIOXIDE - CO2 31 mmol/L (21-32); CHLORIDE 105 mmol/L (101-111); CHOL/HDL RATIO 3.1 (<5.0); CHOLESTEROL 89 mg/dL; CREATININE 1.7 mg/dL (0.6-1.3); GFR - MDRD 39 (>89); GLUCOSE 103 mg/dL (74-104); HDL CHOLESTEROL 29 mg/dL; LDL CHOLESTEROL,CALCULATED 39 mg/dL; LDL/HDL RATIO 1.3 (<3.6); POTASSIUM 3.8 mmol/L (3.5-4.5); SODIUM 141 mmol/L (135-145); TOTAL PROTEIN 7.1 g/dL (6.4-8.9); TRIGLYCERIDES 103 mg/dL (48-352); URIC ACID 5.3 mg/dL (4.4-7.6); VLDL CHOLESTEROL 21 mg/dL
== END 2023-08-23 09:27 | disposition home or self-care (01) ==
LOC: LAB.N 09:26
PROVIDERS: ATTEND Internal Medicine
DX: I10 Essential (primary) hypertension (principal); E78.5 Hyperlipidemia, unspecified; M10.272 Drug-induced gout, left ankle and foot
CPT/HCPCS: 36415; 80053; 80061; 83721; 84550; 85025

== ENCOUNTER 2024-04-11 08:57 | Outpatient (CLI) | payer MEDICARE, OTHER ==
[2024-04-11 13:01] LABS: BILIRUBIN,URINE NEGATIVE (NEGATIVE); GLUCOSE, URINE (UA) NEGATIVE (NEGATIVE); KETONES,URINE (UA) NEGATIVE (NEGATIVE); LEUKOCYTE ESTERASE, URINE NEGATIVE (NEGATIVE); NITRITE,URINE NEGATIVE (NEGATIVE); OCCULT BLOOD,URINE NEGATIVE (NEGATIVE); PROTEIN,URINE NEGATIVE (NEGATIVE); UROBILINOGEN,URINE 0.2 (NORMAL) E.U./dL (NORMAL)
[2024-04-11 13:06] LABS: CALCIUM 9.1 mg/dL (8.5-10.3); CREATININE 1.3 mg/dL (0.6-1.3); POTASSIUM 3.8 mmol/L (3.5-4.5); URIC ACID 5.7 mg/dL (4.4-7.6)
[2024-04-11 13:07] LABS: THYROID STIMULATING HORMONE 2.02 uIU/mL (0.34-5.60)
[2024-04-11 13:11] LABS: CLARITY,URINE CLEAR (CLEAR)
== END 2024-04-11 08:58 | disposition home or self-care (01) ==
LOC: LAB.N 08:57
PROVIDERS: ATTEND Internal Medicine
DX: N40.1 Benign prostatic hyperplasia with lower urinary tract symptoms (principal); I10 Essential (primary) hypertension; R53.83 Other fatigue; M10.272 Drug-induced gout, left ankle and foot
CPT/HCPCS: 36415; 80048; 81001; 81003; 84153; 84443; 84550; 87086